=== PATIENT | male | born 1940 | race Caucasian/White ===

== ENCOUNTER 2024-06-12 10:10 | Emergency (ER) | payer MEDICARE, BC ==
[2024-06-12] MEDS ORDERED: Sodium Chloride 0.9% 10 ML Syringe FLUSH PRN (10:27)
[2024-06-12 10:49] LABS: BASOPHILS PERCENT AUTO 0.2 % (0.0-1.0); HEMATOCRIT 54.9 % (40.0-54.0); HEMOGLOBIN 18.3 g/dL (14.0-18.0); LYMPHOCYTES PERCENT AUTO 10.2 % (20.5-50.1); MEAN CORPUSCULAR HGB CONC 33.3 g/dL (33.0-35.0); MEAN CORPUSCULAR VOLUME 92.9 fL (80-100); MONOCYTES PERCENT AUTO 16.9 % (2-8); NEUTROPHILS PERCENT AUTO 72.7 % (42.2-75.2); PLATELET COUNT,PLT 303 10^3/uL (150-450); RED BLOOD CELL COUNT 5.91 10^6/uL (4.6-6.2); WHITE BLOOD CELL COUNT,WBC 8.1 10^3/uL (5.0-10.0)
[2024-06-12] MEDS: Ketorolac 30 MG/ML SDV IVPUSH ONE (10:50)
[2024-06-12] MEDS: Sodium Chloride 0.9% 1,000 ML IV ONE ×2 (10:55→11:45)
[2024-06-12 11:08] LABS: A/G RATIO 1.1; ALBUMIN 3.6 g/dL (3.4-5.0); ANION GAP 12.5 mEq/L (7-13); BILIRUBIN TOTAL 0.8 mg/dL (0.2-1.0); C-REACTIVE PROTEIN 1.32 ng/dL (<=0.50); CREATININE 1.43 mg/dL (0.70-1.30); EST CRCL DRUG DOSING (CG) 39.7 mL/min; MAGNESIUM 2.5 mg/dL (1.8-2.4); POTASSIUM,K 3.5 mmol/L (3.5-5.1); PROTEIN TOTAL,TP 6.9 g/dL (6.4-8.2)
[2024-06-12 11:17] LABS: LACTIC ACID 2.1 mmol/L (0.4-2.0)
[2024-06-12] MEDS: Benzocaine 20% Topical Spray UD MUCMEM ONE (13:30)
[2024-06-12] MEDS: Albuterol 0.083% 2.5 MG/3 ML Neb Soln NEB ONE (13:30)
[2024-06-12] MEDS: Albuterol 0.083% 2.5 MG/3 ML Neb Soln ONE (13:31)
== END 2024-06-12 14:52 ==
LOC: DL.ED 10:10
DX: K56.601 Complete intestinal obstruction, unspecified as to cause (principal); I10 Essential (primary) hypertension; E66.9 Obesity, unspecified; E11.9 Type 2 diabetes mellitus without complications; F17.210 Nicotine dependence, cigarettes, uncomplicated; Z88.0 Allergy status to penicillin; Z79.82 Long term (current) use of aspirin; Z79.84 Long term (current) use of oral hypoglycemic drugs; Z79.899 Other long term (current) drug therapy; Z90.49 Acquired absence of other specified parts of digestive tract
CPT/HCPCS: 36415; 71045; 74018; 74176; 80053; 83605; 83690; 83735; 85025; 86140; 99285; A9270; J1885; J7030; J7613-GY